=== PATIENT | male | born 1975 | race Caucasian/White ===

== ENCOUNTER 2019-09-10 18:48 | Emergency (ER) | payer MEDICAID ==
[~2019-09-10] VITALS: Ht 166.4 cm; Wt 135.2 kg
[2019-09-10 19:00] VITALS: BP 142/74
[2019-09-10] MEDS ORDERED: ACETAMINOPHEN EXTRA STRENGTH 500 MG TAB PO ONE (19:05)
--- NOTE | 2019-09-10 19:08 | NUR ---
FLU SWAB OBTAINED
--- NOTE | 2019-09-10 19:20 | NUR ---
BIB SELF REPORTS FEVER AND HEADACHE STARTING YESTERDAY. DENIES ANY RESP SYMPTOMS. LUNGS CLEAR, ABD SOFT AND NON-TENDER WITH NO NVD. AAO. NO OTHER SYMPTOMS REPORTED. STATES HIS SON WAS SICK AT HOME. NO HX.
--- NOTE | 2019-09-10 20:00 | NUR ---
WILL MURPHY AT BEDSIDE.
[2019-09-10] MEDS ORDERED: KETOROLAC 60 MG/2 ML VIAL IM ONE ×3 (20:05→20:25)
--- NOTE | 2019-09-10 20:40 | NUR ---
PATIENT FEVER AND PAIN REDUCED. PA MADE AWARE.
[2019-09-10 20:53] VITALS: BP 132/68
--- NOTE | 2019-09-10 20:54 | NUR ---
Patient discharged with v/s stable. Written and verbal after care instructions given and explained. Patient alert, oriented and verbalized understanding of instructions. Ambulatory with steady gait. All questions addressed prior to discharge. ID band removed. Patient advised to follow up with PMD. Rx of ACETAMINOPHEN,IBUPROFEN, TAMIFLU, PROMETHAZINE given. Patient educated on indication of medication including possible reaction and side effects. Opportunity to ask questions provided and answered.
== END 2019-09-10 20:54 | disposition home or self-care (01) ==
LOC: MED 18:48
DX: J10.1 Influenza due to other identified influenza virus with other respiratory manifestations (principal)
CPT/HCPCS: 87804; 96372; 99283; J1885

== ENCOUNTER 2020-02-07 11:11 | Emergency (ER) | payer SELFPAY ==
[~2020-02-07] VITALS: Ht 170.2 cm; Wt 138.5 kg
[2020-02-07 11:18] VITALS: BP 119/79
[2020-02-07] MEDS ORDERED: KETOROLAC 60 MG/2 ML VIAL IM ONE (11:25)
--- NOTE | 2020-02-07 11:25 | NUR ---
PT C/O FRONTAL HEADACHE, WATERY DIARRHEA, AND SUBJECTIVE FEVER X 2 DAYS. PT TAKEN OTC RX WITH NO RELIEF. NEURO WNL. PUPILS PERRLA, EQUAL STRENGTH IN ALL EXTREMITIES, STRONG .NET DEVELOPER, NO SLURRED SPEECH, NO FACIAL DROOP, NO SINUS TENDERNESS ON PALPATION. VSS, EUPNIC, AMBULATORY, A&OX4. PT DENIES ANY CP, SOB, COUGH, NAUSEA, OR VOMITING AT THIS TIME; VSS; PATIENT POSITIONED FOR COMFORT; HOB ELEVATED; BEDRAILS UP X1; BED DOWN. ER MD MADE AWARE OF PT STATUS.
[2020-02-07 12:01] VITALS: BP 108/68
== END 2020-02-07 12:01 | disposition home or self-care (01) ==
LOC: MED 11:11
DX: R51 Headache (principal)
CPT/HCPCS: 96372; 99283; J1885